=== PATIENT | female | born 1955 | race Caucasian/White ===

== ENCOUNTER → 2018-10-29 | Day surgery (SDC) | payer OTHER ==
[~2018-10-29] MED LIST: FOLGARD TABLET1 EACH PO; IBUPROFEN600 MG PO; LIPIT PO; SYNTHROID75 MCG PO; SYNTHROID88 MCG PO
== END | disposition home or self-care (01) ==
LOC: ADM 10-10 10:30 → CIR.AMB 09:29
DX: N84.0 Polyp of corpus uteri (principal)